=== PATIENT | female | born 1975 | race African-American/Black ===

== ENCOUNTER → 2018-08-31 | Outpatient (CLI) | payer OTHER ==
[~2018-08-31] MED LIST: CONTRAST GIVEN. MC PRN; IOHEXOL 240 MG/ML 50ML VIAL. PO ONE; IOHEXOL 300 MG/ML 100ML VIAL. IV ONE
--- NOTE | 2018-08-31 14:14 | RAD ---
CT of the abdomen and pelvis with contrast, 08/31/2018: HISTORY: Left lower quadrant pain Multidetector CT imaging was performed following oral and IV administration of contrast. No hepatic abnormality is seen. The gallbladder is unremarkable. No pancreatic abnormality is detected. There are calcified granulomata in the spleen. The spleen is of normal size. No renal abnormality is detected. The abdominal aorta is unremarkable. No abdominal or pelvic adenopathy is seen. The uterine contour is lobulated suggesting the presence of uterine fibroids. The ovaries cannot be clearly from unopacified bowel. The oral contrast material has not reached the colon. The bowel loops are not dilated. A portion of the appendix is visualized and it is unremarkable. No free air or free fluid is evident in the abdomen or pelvis. There is mild diastases of the rectus abdominis musculature with anterior bulging of the intervening fascia at the level of the umbilicus. IMPRESSION: 1. Mild lobulation of the renal contour suggesting the presence of uterine fibroids. 2. Fascial bulging at the level of the umbilicus. 3. No acute abdominal or pelvic abnormality is detected. PQRS Compliance Statement: One or more of the following individualized dose reduction techniques were utilized for this examination: 1. Automated exposure control 2. Adjustment of the mA and/or kV according to patient size 3. Use of iterative reconstruction technique Electronically signed by: Addi Marina MD (08/31/2018 2:11 PM) [facility]
== END | disposition home or self-care (01) ==
LOC: CT 08:38
PROVIDERS: ATTEND Family Medicine
DX: D73.89 Other diseases of spleen (principal)
CPT/HCPCS: 74177; Q9966; Q9967

== ENCOUNTER → 2021-02-25 | Outpatient (CLI) | payer MEDICAID ==
--- NOTE | 2021-02-25 17:17 | CARD ---
MR#: [id number] Date of Study: 02/25/2021 Ordering Physician: RAJ BROOKS, Referring Physician: RAJ BROOKS, Tech: Leeanna Najera, [facility] APPROVED REPORT EXAM: Two-dimensional and M-mode echocardiogram with Doppler and color Doppler. Other Information Quality : AverageHR: 44bpm Technically limited study due to Asthma INDICATION Murmur RISK FACTORS Asthma 2D DIMENSIONS RVDd3.0 (2.9-3.5cm)Left Atrium(2D)3.1 (1.6-4.0cm) IVSd0.7 (0.7-1.1cm)Aortic Root(2D)2.2 (2.0-3.7cm) LVDd4.5 (3.9-5.9cm)LVOT Diameter2.0 (1.8-2.4cm) PWd0.8 (0.7-1.1cm)LVDs3.0 (2.5-4.0cm) FS (%) 34.1 %SV58.1 ml LVEF(%)63.3 (>50%) Aortic Valve AoV Peak Chas.119.0cm/sAoV VTI30.1cm AO Peak GR.5.7mmHgAO Mean GR.3mmHg Mitral Valve MV E Bckyualc18.4cm/sMV DECEL [id number] MV A Dzbtpsbo35.3cm/sMV E Mean Gr.1mmHg MV [id number]/A Ratio1.0 MVA (PHT)3.65cm2 TDI E/Lateral E'5.4E/Medial E'6.3 Pulmonary Valve PV Peak Tjhvqeko30.9cm/sPV Peak Grad.3mmHg Tricuspid Valve TR P. [id number]/sRAP [id number] TR Peak Gr.37ipAqONST36mmLb LEFT VENTRICLE The left ventricle is normal size. There is normal left ventricular wall thickness. The left ventricu lar systolic function is normal. The Ejection Fraction is 55-60%. There is normal LV segmental wall m otion. The left ventricular diastolic function and filling is normal for age. RIGHT VENTRICLE The right ventricle is normal size. There is normal right ventricular wall thickness. The right ventr icular systolic function is normal. ATRIA The left atrium size is normal. The right atrium size is normal. The interatrial septum is intact wit h no evidence for an atrial septal defect or patent foramen ovale as noted on 2-D or Doppler imaging. AORTIC VALVE The aortic valve is normal in structure and function. Doppler and Color Flow revealed no significant aortic regurgitation. There is no significant aortic valvular stenosis. Calculated aortic valve area is cm2 with maximum pressure gradient of 7 mmHg and mean pressure gradient of 4 mmHg. MITRAL VALVE The mitral valve is normal in structure and function. There is no evidence of mitral valve prolapse. There is no mitral valve stenosis. Doppler and Color-flow revealed trace mitral regurgitation. TRICUSPID VALVE The tricuspid valve is normal in structure and function. Doppler and Color Flow revealed trace tricus pid regurgitation with an estimated PAP of 28 mmHg. There is no tricuspid valve stenosis. PULMONIC VALVE The pulmonic valve is not well visualized. Doppler and Color Flow revealed trace pulmonic valvular re gurgitation. GREAT VESSELS The aortic root is normal in size. The IVC is normal in size and collapses >50% with inspiration. PERICARDIAL EFFUSION There is no evidence of significant pericardial effusion. Critical Notification Critical Value: No <Conclusion> The left ventricular systolic function is normal. The Ejection Fraction is 55-60%. There is normal LV segmental wall motion. Trace mitral regurgitation. Trace tricuspid regurgitation with an estimated PAP of 28 mmHg. There is no evidence of significant pericardial effusion. Signed by : Андрей Cochran, Electronically Approved : 02/25/2021 17:17:06
== END ==
LOC: ECHO 14:32
PROVIDERS: ATTEND Internal Medicine Cardiovascular Disease
DX: R01.1 Cardiac murmur, unspecified (principal)
CPT/HCPCS: 93306; C8929